=== PATIENT | male | born 1940 | race Caucasian/White ===

== ENCOUNTER → 2016-07-12 | Outpatient (CLI) | payer OTHER, MEDICARE ==
--- NOTE | 2016-07-12 14:29 | DX ---
PA and Lateral Chest History: Cough for multiple weeks.. Comparison: None available. Findings: There is mild peribronchial thickening without focal consolidation. There is no pneumothora x or pleural effusion. Heart size is upper normal. 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 Anterior cervical fusion hardware is incompletely visualized. Impression: Mild peribronchial thickening suggesting airways disease/bronchitis.
== END ==
LOC: CIMAGING 13:04
PROVIDERS: ATTEND Family Medicine
DX: R05 Cough (principal); M25.78 Osteophyte, vertebrae
CPT/HCPCS: 71020-PO